=== PATIENT | female | born 1940 | race Caucasian/White ===

== ENCOUNTER 2022-01-17 10:12 | Outpatient (CLI) | payer MEDICARE ==
[~2022-01-17 10:12] MED LIST: ALBU8.5H17 IH; AMLO10TA PO; HYDR-4353 PO; MELO-102 PO; MIRT-116 PO; SERT-433 PO
== END 2022-01-17 23:59 | disposition home or self-care (01) ==
LOC: RAD 10:12
DX: G40.009 Localization-related (focal) (partial) idiopathic epilepsy and epileptic syndromes with seizures of localized onset, not intractable, without status epilepticus (principal)
CPT/HCPCS: 95816